=== PATIENT | female | born 1980 | race Caucasian/White ===

== ENCOUNTER 2021-07-24 12:03 | Emergency (ER) | payer MEDICAID, SELFPAY ==
[2021-07-24 12:05] VITALS: BP 154/86; PULSE 83; RESP 19; TEMP 37.1; O2SAT 99; BMI 23.2
--- NOTE | 2021-07-24 12:59 | CT_ITS ---
STUDY: CTA CHEST REASON FOR EXAM: Female, 41 years old. Right-sided chest pain and shortness of breath RADIATION DOSAGE (If Supplied By Facility): CTDIvol = ( 5.31 ) mGy, DLP = ( 141.14 ) mGycm TECHNIQUE: The examination was performed with the intravenous administration of IV 75mL Isovue-370. Post-processing of the angiographic images was performed, with multiplanar reformation and 3D reconstruction. Individualized dose optimization techniques were used for this CT. COMPARISON: None. FINDINGS: There is no acute or chronic pulmonary embolism. Aorta is of normal caliber. Lungs are clear and moderately emphysematous. There is no pneumothorax, pulmonary edema or pleural effusions. Mediastinal contents are normal. There is a sclerotic lesion in the lateral seventh rib with mild periosteal reaction. CT/CTA Chest W/WO Contrast IMPRESSION: 1. No pulmonary embolism. 2. Moderate emphysema, no acute lung disease. 3. Right seventh rib sclerotic lesion. Differential diagnosis includes subacute/healing nondisplaced fracture versus bone lesion such as metastasis. Refer to dedicated osseous imaging. Electronically Signed: Dony Elizondo MD at 14:31 EDT Tel , Service support ,
--- NOTE | 2021-07-24 12:59 | EKG12_ITS ---
Test Reason : CP Blood Pressure : / mmHG Vent. Rate : 078 BPM Atrial Rate : 078 BPM P-R Int : 152 ms QRS Dur : 092 ms QT Int : 400 ms P-R-T Axes : 075 065 058 degrees QTc Int : 456 ms Normal sinus rhythm Incomplete right bundle branch block Confirmed by GAUDENCIO WHYTE, MARIBEL ([id number]), order editor ADONIS RIDLEY ([id number]) on 07/26/2021 9:13:20 AM Referred By: ADDIS Confirmed By:MARIBEL RATLIFF MD
--- NOTE | 2021-07-24 12:59 | ED.VIS.CHEST ---
HPI History of Present Illness Chief Complaint: Chest Pain Narrative Narrative: Intermittent right-sided chest pain for the past 2 weeks. Worsening today with dyspnea. Chronic cough with tobacco history. No history of PE or DVT. Reports was seen and evaluated 2 weeks ago with a x-ray that was negative. History anxiety depression along with reflux. Pain is a lot more severe this morning. States pain worse with deep breaths. History of partial hysterectomy in the past. Prior Similar Symptoms: Yes PFSH PFSH Medical History Anxiety Depression GERD (gastroesophageal reflux disease) IBS (irritable bowel syndrome) Migraines Home Medications oxycodone-acetaminophen [Percocet] 1 tab PO Q6H PRN 3 Days #12 tab 07/24/21 [Rx Last Taken Unknown] Allergy/AdvReac Type Severity Reaction Status Date / Time No Known Allergies Allergy Verified 07/24/21 12:06 Surgical History History of partial hysterectomy Social History Smoking Status: Current every day smoker tobacco type: cigarettes ROS ROS ED Constitutional Constitutional ED: Denies chills, fever(s) or sweats Eyes Eyes: Denies change in vision ENT ENT ED: Denies dysphagia or sore throat Cardiovascular Cardiovascular: Reports chest pain; Denies leg edema, palpitations or racing heartbeat Respiratory/Chest Respiratory/Chest: Reports cough and dyspnea; Denies dyspnea on exertion Gastrointestinal Gastrointestinal: Denies abdominal pain, diarrhea, nausea or vomiting Genitourinary Genitourinary ED: Denies dysuria, hematuria or urinary frequency Musculoskeletal Musculoskeletal: Denies back pain, extremity pain or neck pain Integumentary Denies rash or wounds Neurologic Neurologic: Denies headache(s), paresthesias or weakness EXAM Physical Exam Const Vital Signs: 07/24/21 12:05 07/24/21 12:55 07/24/21 12:59 Temperature 98.7 F Temperature Source Temporal Pulse Rate 83 Respiratory Rate 19 H Respiratory Effort Normal Non-Labored Blood Pressure 154/86 H Blood Pressure Mean 108 Pulse Ox 99 Oxygen Delivery Method Room Air Room Air 07/24/21 13:01 07/24/21 14:44 Temperature Temperature Source Pulse Rate 73 66 Respiratory Rate 15 18 Respiratory Effort Blood Pressure 148/78 H 129/85 H Blood Pressure Mean 101 99 Pulse Ox 99 98 Oxygen Delivery Method Room Air Room Air Positive well nourished and well developed Constitutional Narrative: Uncomfortable, nontoxic holding right side chest. General Appearance ED: well developed HEENT Reports moist mucous membranes normocephalic and atraumatic Eyes PERRL, EOMs intact bilaterally and conjunctivae normal General Eye ED: Yes normal appearance of both eyes Neck no lymphadenopathy and supple General: Negative for tenderness Chest Wall Chest: Negative for tenderness Resp normal respiratory effort and normal air movement Effort and Inspection: symmetric chest movement; Negative for respiratory distress Cardio regular rate, regular rhythm and no murmurs Peripheral Pulses: pulses 2+ throughout GI normal to inspection, nondistended, normoactive bowel sounds and non-tender Palpation: Negative for guarding or rebound tenderness present Back/Spine no CVA tenderness and no thoracic nor lumbar tenderness Extremity normal to inspection General Extremety ED: Negative for edema or tenderness General Extremity: Negative for edema Neuro oriented x3 and no sensory deficits noted Sensorium / Orientation: awake and alert Skin no rashes or lesions noted and no wounds Heart Score History: Slightly/Non-Suspicious ECG: Normal Age: </= 45 years Risk Factors: 1 or 2 Risk Factors Troponin: </= Normal Limit Score: 1 MDM MDM MDM Narrative Medical decision making narrative: Patient vitals stable persistent right sided symptoms that is worsening. Reported outpatient x-ray 2 weeks ago that was negative. She has been on naproxen with no relief. Pain with deep breaths. Work-up initiated to rule out PE. Labs are stable. Troponin negative. CTA chest negative for PE, however noted right seventh rib sclerotic lesion reporting subacute healing from fracture versus bone lesion for possible metastasis. There is no lung masses noted. She denies any trauma. Pain was controlled with morphine in the ED. Discussed findings with patient without any trauma less likely healing fractures. Discussed will need further work-up as an outpatient to rule out cancer. I did speak with on-call physician for Dr. Chandler, () who will relay information to Dr. Chandler. Patient will call tomorrow for office follow-up. Prescription for Percocet to use as needed. Lab Data Attestation: I reviewed the patient's lab results. Labs: Laboratory Results - last 24 hr 07/24/21 07/24/21 12:17 12:17 WBC 7.7 RBC 4.65 Hgb 14.6 Hct 43.7 MCV 94.0 MCH 31.4 MCHC 33.4 RDW Std Deviation 43.5 RDW Coeff of Domi 12.6 Plt Count 261 MPV 11.0 Immature Gran % (Auto) 0.100 Neut % (Auto) 62.7 Lymph % (Auto) 30.4 [place] % (Auto) 4.7 Eos % (Auto) 1.6 Baso % (Auto) 0.5 Absolute Neuts (auto) 4.8 Absolute Lymphs (auto) 2.33 Nucleated RBC % 0 Sodium 138 Potassium 3.6 Chloride 104 Carbon Dioxide 27.0 Anion Gap 7 BUN 6 L Creatinine 0.73 Estim Creat Clear Calc 78.59 Est GFR (MDRD) Af Amer 112 Est GFR (MDRD) Non-Af 92 BUN/Creatinine Ratio 8.2 L Glucose 96 Calcium 9.4 Troponin I High Sens 6 Radiography Diagnostic Testing: Radiology Impression Chest CTA 07/24/21 12:59 IMPRESSION: 1. No pulmonary embolism. 2. Moderate emphysema, no acute lung disease. 3. Right seventh rib sclerotic lesion. Differential diagnosis includes subacute/healing nondisplaced fracture versus bone lesion such as metastasis. Refer to dedicated osseous imaging. Electronically Signed: Dony Elizondo MD at 14:31 EDT Tel , Service support , EKG Initial EKG: Attestation: I personally reviewed and interpreted this EKG as follows: Comments: Sinus rate of 78, no ST or T wave changes. Discharge Plan Triage Chief Complaint: Chest Pain ED Provider: Rosalino Puga Dx/Rx/DC Orders Instructions: ED Chest Pain, Noncardiac Prescriptions: New oxycodone-acetaminophen [Percocet] 5-325 mg tablet 1 tab PO Q6H PRN (Reason: pain) 3 Days Qty: 12 RF: 0 Primary Care Provider: Colt Chandler Referrals: Colt Chandler MD [Primary Care Provider] - 1 Day Activity Restrictions/Additional Instructions: CT scan concerning for sclerotic lesion along the right rib. Differential included metastatic bone cancer versus healing fractures. He states there is no injuries. This will need further work-up as an outpatient. Call tomorrow for outpatient visit to your doctor for further testing. Disposition Disposition: Home, Self Care
[2021-07-24 13:01] VITALS: BP 148/78; PULSE 73; RESP 15; O2SAT 99
[2021-07-24] MEDS: Morphine 4 MG/ML Syringe IV ×2 (13:11→14:33)
[2021-07-24 13:14] LABS: Absolute Lymphocyte Count 2.33 X10^3/uL (0.83-4.51); Absolute Neutrophil Count 4.8 X10^3/uL (2.0-7.7); Basophil# 0.04 X10^3/uL; Basophil% 0.5 % (0-1); Eosinophil# 0.12 X10^3/uL; Eosinophils% 1.6 % (0-5); Hematocrit 43.7 % (37-47); Hemoglobin 14.6 g/dL (12.0-15.0); Lymphocyte # 2.33 X10^3/ul (0.83-4.51); Lymphocyte % 30.4 % (19-41); Mean Corp Hgb Conc 33.4 g/dL (32-36); Mean Corpuscular Hgb 31.4 pg (27.0-32.0); Monocyte# 0.36 X10^3/uL; Monocyte% 4.7 % (0-10); NRBC Flagged by Analyzer 0 % (0-5); Neutrophil # 4.81 X10^3/uL (2.7-7.7); Neutrophil % 62.7 % (47-70); Platelet Count 261 K/mm3 (150-450); RBC Distribution Width CV 12.6 % (11.6-14.6); RBC Distribution Width SD 43.5 fl (35.1-43.9); Red Blood Count 4.65 M/mm3 (4.2-5.4); White Blood Count 7.7 K/mm3 (4.4-11.0)
[2021-07-24 13:28] LABS: Anion Gap 7 (5-15); BUN 6 mg/dL (7-18); BUN/Creat Ratio 8.2 RATIO (10-20); Calcium,Total 9.4 mg/dL (8.5-10.1); Chloride 104 mmol/L (98-107); Creatinine, Serum 0.73 mg/dL (0.55-1.02); EST Glomerular Filtration Rate 92 mL/min (>60); Est Glom Filt Rate - Afr Amer 112 mL/min (>60); Estimated Creatinine Clearance 78.59 ml/min; Glucose 96 mg/dL (74-106); Potassium 3.6 mmol/L (3.5-5.1); Sodium Level 138 mmol/L (136-145); Troponin-I HS 6 pg/mL (3.0-54.0)
[2021-07-24 14:44] VITALS: BP 129/85; PULSE 66; RESP 18; O2SAT 98
[2021-07-24 16:57] VITALS: BP 133/80; PULSE 67; PULSE 97; RESP 18; O2SAT 98
== END 2021-07-24 17:04 | disposition home or self-care (01) ==
PROVIDERS: Emergency Provider Emergency Medicine; PCP Internal Medicine
DX: M99.88 Other biomechanical lesions of rib cage (principal); K58.9 Irritable bowel syndrome, unspecified; F17.210 Nicotine dependence, cigarettes, uncomplicated
CPT/HCPCS: 71275; 80048; 84484; 85025; 93005; 96374; 96376; 99285; Q9967; A4216

== ENCOUNTER → 2021-11-13 | Outpatient (REF) | payer MEDICAID, SELFPAY | END | disposition home or self-care (01) | LOC: LABSPEC 12:06 | PROVIDERS: PCP Internal Medicine; Visit Provider Family Medicine | DX: Z03.818 Encounter for observation for suspected exposure to other biological agents ruled out (principal) | CPT/HCPCS: 87635; U0005; U0003 ==

== ENCOUNTER → 2023-06-17 | Outpatient (CLI) | payer MEDICAID, SELFPAY | END | disposition home or self-care (01) | PROVIDERS: PCP Internal Medicine; Visit Provider Physician Assistant | DX: R30.0 Dysuria (principal) | CPT/HCPCS: 87086 ==